=== PATIENT | female | born 1975 | race Two or more races ===

== ENCOUNTER 2024-08-24 09:10 | Day surgery (SDC) | payer OTHER ==
[2024-08-18 13:21] VITALS: BP 117/74
[~2024-08-24] VITALS: Ht 152.4 cm; Wt 68.0 kg
[~2024-08-24 09:10] MED LIST: CELEBREX200MG PO; LYRICA100 MG PO
[2024-08-24] MEDS ORDERED: CEFAZOLIN SODIUM 1,000 MG VIAL ONE (10:19)
[2024-08-24] MEDS ORDERED: POVIDONE-IODINE 118 ML BOTT TOP ONE (12:24)
[2024-08-24] MEDS ORDERED: METHYLERGONOVINE MALEATE 0.2 MG/ML AMPUL ONE ×2 (13:29→17:28)
[2024-08-24] MEDS ORDERED: ONDANSETRON HCL 2 MG/ML VIAL ONE (14:55)
[2024-08-24] MEDS ORDERED: METHYLERGONOVINE MALEATE 0.2 MG/ML AMPUL IM SCH (17:00)
== END 2024-08-24 18:55 | disposition home or self-care (01) ==
LOC: CIR.AMB 09:10
PROVIDERS: ATTEND Obstetrics & Gynecology
DX: D25.0 Submucous leiomyoma of uterus (principal); N84.0 Polyp of corpus uteri; N84.1 Polyp of cervix uteri; F41.9 Anxiety disorder, unspecified

== ENCOUNTER 2024-11-06 08:12 | Inpatient (IN) | payer OTHER ==
[~2024-11-06] VITALS: Ht 152.4 cm; Wt 69.4 kg
[2024-11-06 08:44] VITALS: BP 142/77
[2024-11-06 08:48] VITALS: BP 119/74
[2024-11-06 10:47] LABS: RH POSITIVE
[2024-11-09] MEDS ORDERED: CEFAZOLIN SODIUM 1,000 MG VIAL ONE ×2 (08:49→16:51)
[2024-11-09] MEDS ORDERED: POVIDONE-IODINE 118 ML BOTT TOP ONE (12:51)
[2024-11-09] MEDS ORDERED: THROMBIN,HU/FIBRINOGEN/CALCIUM 10 ML SYRINGE TOP ONE (13:09)
[2024-11-09] MEDS ORDERED: VISTASEAL DUAL APPICATOR 1 EACH APPL TOP ONE (13:09)
[2024-11-09] MEDS ORDERED: SUGAMMADEX SODIUM 200 MG/2 ML VIAL IV ONE (15:05)
[2024-11-09] MEDS ORDERED: ONDANSETRON HCL 2 MG/ML VIAL IV PRN (15:15)
[2024-11-09] MEDS ORDERED: OxyCODONE HCL 5 MG TABLET (ROXICODONE) PO PRN (15:15)
[2024-11-09] MEDS ORDERED: MORPHINE SULFATE 4 MG/ML CARTRIDGE IV PRN (15:15)
[2024-11-09] MEDS ORDERED: RINGERS SOLUTION,LACTATED 1,000 ML IV SCH (15:15)
[2024-11-09] MEDS ORDERED: KETOROLAC TROMETHAMINE 30 MG VIAL ONE (16:51)
[2024-11-09] MEDS ORDERED: METOCLOPRAMIDE HCL 5 MG/ML VIAL IV SCH (17:00)
[2024-11-09] MEDS ORDERED: KETOROLAC TROMETHAMINE 30 MG VIAL IV NR (17:00)
[2024-11-09] MEDS ORDERED: CEFAZOLIN SODIUM 1,000 MG VIAL IV SCH (17:00)
[2024-11-09] MEDS ORDERED: SIMETHICONE 125 MG CAPSULE PO SCH (17:00)
[2024-11-09] MEDS ORDERED: GABAPENTIN 300 MG CAPSULE PO SCH (17:00)
[2024-11-09 17:18] LABS: HEMATOCRIT 31.4 % (36.0-45.00); HEMOGLOBIN 10.6 g/dL (12.0-15.00); MEAN CELL VOLUME 88.5 fL (80.00-100.00); MEAN CORPUSCULAR HEMOGLOBIN 29.9 pg (27.00-32.0); MEAN CORPUSCULAR HGB CONC 33.8 g/dl (32.0-36.0); PLATELET COUNT 236 K/uL (150-450); RED BLOOD COUNT 3.55 M/uL (4.00-6.00); RED CELL DISTRIBUTION WIDTH 13.7 % (11.5-14.5)
[2024-11-09 17:34] LABS: ALBUMIN 3.1 gm/dL (3.4-5.0); CALCIUM 8.2 mg/dL (8.5-10.1); CREATININE SERUM 0.62 mg/dL (0.55-1.02); GFR 103.18; PHOSPHOROUS 3.5 mg/dL (2.5-4.9); POTASSIUM 3.55 mEq/L (3.5-5.1)
[2024-11-09] MEDS ORDERED: KETOROLAC TROMETHAMINE 30 MG VIAL IM SCH (18:00)
[2024-11-09] MEDS ORDERED: FAMOTIDINE/PF 20 MG/2 ML VIAL IV PUSH SCH (21:00)
[2024-11-10] VITALS: BP 113/71
[2024-11-10 06:32] LABS: HEMOGLOBIN 10.2 g/dL (12.0-15.00); MEAN CELL VOLUME 87.6 fL (80.00-100.00); MEAN CORPUSCULAR HEMOGLOBIN 29.7 pg (27.00-32.0); MEAN CORPUSCULAR HGB CONC 33.9 g/dl (32.0-36.0); PLATELET COUNT 238 K/uL (150-450); RED BLOOD COUNT 3.42 M/uL (4.00-6.00); RED CELL DISTRIBUTION WIDTH 13.5 % (11.5-14.5)
[2024-11-10 06:54] LABS: ALBUMIN 2.8 gm/dL (3.4-5.0); CALCIUM 8.1 mg/dL (8.5-10.1); CREATININE SERUM 0.61 mg/dL (0.55-1.02); GFR 105.13; POTASSIUM 3.74 mEq/L (3.5-5.1)
[2024-11-10] MEDS ORDERED: TRAMADOL HCL 50 MG TABLET PO SCH (08:00)
[2024-11-10 08:53] VITALS: BP 109/72; O2SAT 96
[2024-11-10] MEDS ORDERED: ENOXAPARIN SODIUM 40 MG/0.4 ML SYRINGE SUBCUTANEO SCH (09:00)
== END 2024-11-10 11:05 | disposition home or self-care (01) | DRG 741 ==
LOC: SURH 11-09 07:37 → O/R 11-09 07:53 → SURH 11-09 08:06 → SURG 11-09 15:56 → OB/GYN 11-09 16:16 → SURH 11-09 19:30 → OB/GYN 11-10 11:05
PROVIDERS: ADMIT Obstetrics & Gynecology Gynecologic Oncology; ATTEND Obstetrics & Gynecology Gynecologic Oncology
PROC: 0UT74ZZ Resection of Bilateral Fallopian Tubes, Percutaneous Endoscopic Approach (ICD-10-PCS; 2024-11-09)
PROC: 07BC4ZZ Excision of Pelvis Lymphatic, Percutaneous Endoscopic Approach (ICD-10-PCS; 2024-11-09)
PROC: 0UT24ZZ Resection of Bilateral Ovaries, Percutaneous Endoscopic Approach (ICD-10-PCS; 2024-11-09)
PROC: 8E0W4CZ Robotic Assisted Procedure of Trunk Region, Percutaneous Endoscopic Approach (ICD-10-PCS; 2024-11-09)
PROC: 0UT94ZZ Resection of Uterus, Percutaneous Endoscopic Approach (ICD-10-PCS; principal; 2024-11-09 19:30)
DX: C54.1 Malignant neoplasm of endometrium (principal)
CPT/HCPCS: 58548; S2900

== ENCOUNTER 2024-11-14 17:19 | Inpatient (IN) | payer OTHER ==
[~2024-11-14] VITALS: Ht 152.4 cm; Wt 69.4 kg
[2024-11-14 17:40] VITALS: O2SAT 99
[2024-11-14] MEDS ORDERED: ONDANSETRON HCL 2 MG/ML VIAL IV ONE (19:15)
[2024-11-14] MEDS ORDERED: FAMOtidine 10 MG/ML (4ML VIAL) IV ONE (19:15)
[2024-11-14] MEDS ORDERED: 0.9 % SODIUM CHLORIDE 1,000 ML IV ONE (19:15)
[2024-11-14] MEDS ORDERED: ONDANSETRON HCL 2 MG/ML VIAL ONE (19:18)
[2024-11-14] MEDS ORDERED: FAMOTIDINE/PF 20 MG/2 ML VIAL ONE (19:18)
[2024-11-14 19:45] LABS: BASO % 0.2 % (0.1-1.2); EOS # 0.06 (0.04-0.54); EOS % 0.3 % (0.7-7.0); LYMPH # 0.56 (1.18-3.74); LYMPH % 2.9 % (19.3-53.1); MEAN CORPUSCULAR HEMOGLOBIN 29.1 pg (25.6-32.2); MONO # 1.45 (0.24-0.82); MONO % 7.4 % (4.7-12.5); NEUT # 17.34 (1.56-6.13); NEUT % 88.7 % (34.0-71.1); PLATELET COUNT 336 K/uL (163-369); RED BLOOD COUNT 3.06 M/uL (3.93-5.22); RED CELL DISTRIBUTION WIDTH 12.9 % (11.6-14.4)
[2024-11-14 19:59] LABS: HEMOGLOBIN 8.9 g/dL (11.2-15.7)
[2024-11-14 20:03] LABS: INR 1.13; PARTIAL THROMBOPLASTIN TIME 28.8 SECONDS (22.0-34.0); PROTHROMBIN TIME 12.2 SECONDS (9.0-11.5)
[2024-11-14 20:10] LABS: ALBUMIN 2.6 gm/dL (3.4-5.0); BILIRUBIN TOTAL 1.1 mg/dL (0.3-1.2); CALCIUM 8.3 mg/dL (8.5-10.1); CREATININE SERUM 0.56 mg/dL (0.55-1.02); GFR 116.04; GLOBULINA 4.4 G/DL (2.4-3.5)
[2024-11-14 20:18] LABS: POTASSIUM 2.98 mEq/L (3.5-5.1)
[2024-11-14] MEDS ORDERED: KETOROLAC TROMETHAMINE 30 MG VIAL ONE (20:34)
[2024-11-14 20:39] LABS: PH,URINE 8.5 (5.0-8.0); URINE APPEARANCE Clear; URINE BILIRRUBIN Negative (NEGATIVE); URINE BLOOD Moderate; URINE COLOR Yellow; URINE GLUCOSE Negative (NEGATIVE); URINE LEUKOCYTE Small; URINE NITRATE Negative; URINE PROTEIN 30 (NEGATIVE)
[2024-11-14 20:44] LABS: URINE BACTERIA 326.7 uL (0.0-1933); URINE EPITHELIAL CELLS 40.3 uL (0.0-38.8); URINE RBC 70.5 uL (0.0-20.8); URINE WBC 82.4 uL (0.0-23.2)
[2024-11-14] MEDS ORDERED: KETOROLAC TROMETHAMINE 30 MG VIAL IV ONE (20:45)
[2024-11-14 20:46] LABS: URINE CAST 0.14 uL (0.0-1.40); URINE KETONE >=160 (NEGATIVE)
[2024-11-14] MEDS ORDERED: PIPERACILLIN/TAZOBACTAM SODIUM 3.375 GM VIAL IV ONE ×2 (20:48→21:00)
[2024-11-14] MEDS ORDERED: POTASSIUM CHLORIDE IN 0.9%NACL 40 MEQ/1,000 ML PIGGYBAG IV ONE (21:00)
[2024-11-14] MEDS ORDERED: FAMOTIDINE/PF 20 MG in 0.9 % SODIUM CHLORIDE 100 ML IV SCH (23:11)
[2024-11-14] MEDS ORDERED: SOD FERRIC GLUC COMPLX/SUCROSE 62.5 MG in 0.9 % SODIUM CHLORIDE 50 ML IV SCH (23:13)
[2024-11-14] MEDS ORDERED: ONDANSETRON HCL 4 MG in 0.9 % SODIUM CHLORIDE 50 ML IV PRN (23:15)
[2024-11-14] MEDS ORDERED: 0.9 % SODIUM CHLORIDE 1,000 ML IV SCH (23:15)
[2024-11-14] MEDS ORDERED: ACETAMINOPHEN 500 MG GEL..CAP PO PRN (23:30)
[2024-11-15] MEDS ORDERED: PIPERACILLIN/TAZOBACTAM SODIUM 3.375 GM in DEXTROSE 5 % IN WATER 100 ML IV SCH
[2024-11-15] MEDS ORDERED: POTASSIUM CHLORIDE IN WATER 100 ML IV SCH (01:00)
[2024-11-15 03:36] VITALS: BP 120/81
[2024-11-15 06:58] LABS: BASO % 0.2 % (0.1-1.2); EOS # 0.25 (0.04-0.54); EOS % 1.3 % (0.7-7.0); LYMPH # 0.65 (1.18-3.74); LYMPH % 3.5 % (19.3-53.1); MEAN CORPUSCULAR HEMOGLOBIN 29.2 pg (25.6-32.2); MONO # 1.52 (0.24-0.82); MONO % 8.1 % (4.7-12.5); NEUT # 16.08 (1.56-6.13); NEUT % 86.3 % (34.0-71.1); PLATELET COUNT 334 K/uL (163-369); RED BLOOD COUNT 2.81 M/uL (3.93-5.22); RED CELL DISTRIBUTION WIDTH 13.2 % (11.6-14.4)
[2024-11-15 07:27] LABS: HEMATOCRIT 24.6 % (34.1-44.9); HEMOGLOBIN 8.2 g/dL (11.2-15.7)
[2024-11-15 08:01] VITALS: BP 113/75
[2024-11-15 08:11] LABS: ALBUMIN 2.4 gm/dL (3.4-5.0); BILIRUBIN TOTAL 0.78 mg/dL (0.3-1.2); CALCIUM 7.9 mg/dL (8.5-10.1); CREATININE SERUM 0.61 mg/dL (0.55-1.02); GFR 105.13; GLOBULINA 3.6 G/DL (2.4-3.5); MAGNESIUM 1.9 mg/dL (1.8-2.4); PHOSPHOROUS 2.9 mg/dL (2.5-4.9); POTASSIUM 3.09 mEq/L (3.5-5.1)
[2024-11-15 16:58] VITALS: BP 105/71
[2024-11-16 01:54] VITALS: BP 110/73
[2024-11-16 07:08] LABS: BASO % 0.2 % (0.1-1.2); EOS # 0.27 (0.04-0.54); EOS % 1.3 % (0.7-7.0); LYMPH # 1.01 (1.18-3.74); LYMPH % 4.7 % (19.3-53.1); MEAN CORPUSCULAR HEMOGLOBIN 28.7 pg (25.6-32.2); MONO # 1.73 (0.24-0.82); MONO % 8.1 % (4.7-12.5); NEUT # 18.06 (1.56-6.13); NEUT % 84.8 % (34.0-71.1); PLATELET COUNT 387 K/uL (163-369); RED BLOOD COUNT 2.82 M/uL (3.93-5.22); RED CELL DISTRIBUTION WIDTH 13.5 % (11.6-14.4)
[2024-11-16 07:23] LABS: HEMATOCRIT 24.1 % (34.1-44.9); HEMOGLOBIN 8.1 g/dL (11.2-15.7)
[2024-11-16 07:35] LABS: ALBUMIN 2.4 gm/dL (3.4-5.0); BILIRUBIN TOTAL 0.85 mg/dL (0.3-1.2); CREATININE SERUM 0.47 mg/dL (0.55-1.02); GFR 142.04; GLOBULINA 3.6 G/DL (2.4-3.5); POTASSIUM 3.31 mEq/L (3.5-5.1)
[2024-11-16 12:30] VITALS: BP 122/78
== END 2024-11-16 11:46 | disposition home or self-care (01) | DRG 641 ==
LOC: ER 17:24 → OB/GYN 23:14
PROVIDERS: General Practice; ADMIT Obstetrics & Gynecology Gynecologic Oncology; ATTEND Obstetrics & Gynecology Gynecologic Oncology
PROC: BW21Y0Z Computerized Tomography (CT Scan) of Abdomen and Pelvis using Other Contrast, Unenhanced and Enhanced (ICD-10-PCS; principal; 2024-11-14)
DX: E87.6 Hypokalemia (principal); Z90.710 Acquired absence of both cervix and uterus